=== PATIENT | female | born 1985 | race Caucasian/White ===

== ENCOUNTER 2017-03-29 20:19 | Emergency (ER) | payer OTHER ==
[~2017-03-29] VITALS: Ht 165.1 cm; Wt 60.0 kg
[~2017-03-29 20:19] MED LIST: MOBIC15 MG PO
[2017-03-29 21:56] LABS: ADD MIUA? YES; BILIRUBIN NEGATIVE; BLOOD LARGE; COLOR YELLOW ((YELLOW)); GLUCOSE (STRIP) NEGATIVE; KETONES 5; LEUKOCYTES TRACE; NITRITE NEGATIVE; PROTEIN (STRIP) 30; SPECIFIC GRAVITY 1.021 (1.000-1.030)
[2017-03-29 22:12] LABS: BACTERIA RARE /HPF; EPITHELIAL CELLS 2+ /HPF; MUCUS TRACE /LPF; RED BLOOD CELLS TNTC /HPF (0-5); UCUL ADDED? NO
[2017-03-29 22:16] VITALS: BP 102/56
== END 2017-03-29 22:17 | disposition home or self-care (01) ==
LOC: EME 20:19
PROVIDERS: Physician Assistant
DX: N20.0 Calculus of kidney (principal); F17.200 Nicotine dependence, unspecified, uncomplicated
CPT/HCPCS: 81003; 99281; 99284

== ENCOUNTER 2017-05-27 06:43 | Emergency (ER) | payer OTHER ==
[~2017-05-27] VITALS: Ht 165.1 cm; Wt 59.2 kg
[2017-05-27] MEDS ORDERED: NORCO 5/3251 TABLET PO (06:55)
[2017-05-27] MEDS ORDERED: PEN-VEE K,VEET500 MG PO (06:55)
[2017-05-27 07:09] VITALS: BP 106/59
== END 2017-05-27 07:11 | disposition home or self-care (01) ==
LOC: EME 06:43
DX: K04.7 Periapical abscess without sinus (principal); F17.200 Nicotine dependence, unspecified, uncomplicated
CPT/HCPCS: 99281; 99283

== ENCOUNTER 2017-07-09 22:00 | Emergency (ER) | payer OTHER ==
[~2017-07-09] VITALS: Ht 165.1 cm; Wt 59.0 kg
[~2017-07-09 22:00] MED LIST changes: +NORCO 5/3251 TABLET PO; +PEN-VEE K,VEET500 MG PO
[2017-07-09 22:07] VITALS: BP 121/70
== END 2017-07-09 22:07 | disposition home or self-care (01) ==
LOC: EXP 22:00 → EME 22:00 → EXP 22:07
DX: S93.401A Sprain of unspecified ligament of right ankle, initial encounter (principal); X50.1XXA Overexertion from prolonged static or awkward postures, initial encounter; Y93.01 Activity, walking, marching and hiking
CPT/HCPCS: 73610; 99281; 99283

== ENCOUNTER 2017-12-02 08:21 | Emergency (ER) | payer OTHER ==
[~2017-12-02] VITALS: Ht 165.1 cm; Wt 62.7 kg
[2017-12-02 10:31] VITALS: BP 102/62
== END 2017-12-02 10:35 | disposition home or self-care (01) ==
LOC: EME 08:21
DX: S70.00XA Contusion of unspecified hip, initial encounter (principal); V86.99XA Unspecified occupant of other special all-terrain or other off-road motor vehicle injured in nontraffic accident, initial encounter; F17.200 Nicotine dependence, unspecified, uncomplicated; Z88.1 Allergy status to other antibiotic agents
CPT/HCPCS: 73501; 99281; 99284

== ENCOUNTER → 2018-05-15 | Outpatient (CLI) | payer OTHER | END | disposition home or self-care (01) | LOC: RAD 05-13 13:00 | PROC: 0UJ87ZZ Inspection of Fallopian Tube, Via Natural or Artificial Opening (ICD-10-PCS; principal; 2018-05-15) | PROC: BU18YZZ Fluoroscopy of Uterus and Fallopian Tubes using Other Contrast (ICD-10-PCS; principal; 2018-05-15) | PROC: 0UJD7ZZ Inspection of Uterus and Cervix, Via Natural or Artificial Opening (ICD-10-PCS; principal; 2018-05-15) | DX: Z98.51 Tubal ligation status (principal) | CPT/HCPCS: 74740 ==